=== PATIENT | female | born 1995 | race Caucasian/White ===

== ENCOUNTER 2018-12-05 13:05 | Emergency (ER) | payer OTHER ==
[2018-12-05] MEDS ORDERED: Ondansetron 8 MG Tab.DIS PO ONE (13:26)
[2018-12-05] MEDS ORDERED: SUMAtriptan 6 MG/0.5 ML SDV SUBCUT ONE (13:26)
--- NOTE | 2018-12-05 13:30 | EDM.PDOC ---
ED HPI GENERAL MEDICAL PROBLEM - General Stated Complaint: SOB, SHAKEY,DIZZY Time Seen by Provider: 12/05/18 13:05 Source of Information: Reports: Patient, Family History Limitations: Reports: No Limitations - History of Present Illness INITIAL COMMENTS - FREE TEXT/NARRATIVE: 23 y.o.w.f came to the ed due to painful urinations. Pt was seen yesterday by her PMD, when she was diagnosed with a UTI. Pt was given Bactrim DS> So far she took one dose of it. She c/o bitemporal Headache with nausea as well. Pt took Imitrex po at home after which felt jittery and her headache did not improve. He eye exam was in September 2018, no N/V/D, no other acute medical issues. 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: Other (see below) (bactrim) Frontal Headache Pain Score (Numeric/FACES): 9 - Related Data Allergies Allergy/AdvReac Type Severity Reaction Status Date / Time No Known Allergies Allergy Verified 12/05/18 13:37 Home Meds: Home Meds Ciprofloxacin HCl [Cipro] 250 mg PO BID 12/05/18 [History] Ondansetron [Zofran ODT] 4 mg PO Q6H PRN #10 tab.dis 12/05/18 [Rx] Phenazopyridine [Pyridium] 100 mg PO TID #9 tablet 12/05/18 [Rx] SUMAtriptan [Imitrex] 25 mg PO Q2H PRN 12/05/18 [History] ED ROS GENERAL - Review of Systems Review Of Systems: See Below Constitutional: Reports: No Symptoms HEENT: Reports: No Symptoms Respiratory: Reports: No Symptoms Cardiovascular: Reports: No Symptoms Endocrine: Reports: No Symptoms GI/Abdominal: Reports: No Symptoms : Reports: No Symptoms Musculoskeletal: Reports: No Symptoms Skin: Reports: No Symptoms Neurological: Reports: Headache Psychiatric: Reports: No Symptoms Hematologic/Lymphatic: Reports: No Symptoms Immunologic: Reports: No Symptoms - Physical Exam Exam: See Below Exam Limited By: No Limitations General Appearance: Alert, WD/WN, No Apparent Distress Eye Exam: Bilateral Eye: Normal Inspection Ears: Normal External Exam, Normal TMs Throat/Mouth: Normal Inspection Head Exam: Atraumatic, Normocephalic Neck: Normal Inspection, Supple, Non-Tender Respiratory/Chest: No Respiratory Distress, Lungs Clear, Normal Breath Sounds, Chest Non-Tender Cardiovascular: Normal Peripheral Pulses, Regular Rate, Rhythm, No Edema, No Gallop, No Murmur, No Rub GI/Abdominal: Normal Bowel Sounds, Soft, Non-Tender, No Organomegaly, No Abnormal Bruit, No Mass, Pelvis Stable (Female) Exam: Deferred Rectal (Female) Exam: Deferred Neuro Exam (Abbreviated): Alert, Oriented, CN II-XII Intact, Normal Cognition, Normal Gait Back Exam: Normal Inspection, Full Range of Motion Extremities: Normal Inspection, Normal Range of Motion, Non-Tender, No Pedal Edema Psychiatric: Normal Affect, Normal Mood Skin Exam: Warm, Dry, Intact Course - Vital Signs Text/Narrative:: 23 y.o.w.f came to the ed due to painful urinations. Pt was seen yesterday by her PMD, when she was diagnosed with a UTI. Pt was given Bactrim DS> So far she took one dose of it. She c/o bitemporal Headache with nausea as well. Pt took Imitrex po at home after which felt jittery and her headache did not improve. He eye exam was in September 2018, no N/V/D, no other acute medical issues. BP 135 /74 RR 18 Pulse ox 100% on RA Temp 36.4 pulse 82 PE: WNWD W F with dysuria, photophobia and H/A Impression: Headache, Dysuria Tx: Toradol, Zofran, Pyridium Rexam: H/A and Dysuria subsided. Plan: D/C with instructions Last Recorded V/S: Last Vital Signs Temp 36.9 C 12/05/18 13:25 Pulse 79 12/05/18 15:05 Resp 18 12/05/18 15:05 BP 120/66 12/05/18 15:05 Pulse Ox 100 12/05/18 15:05 - Orders/Labs/Meds Labs: Laboratory Tests 12/05/18 Range/Units 14:40 Urine Color Yellow (YELLOW) Urine Appearance Clear (CLEAR) Urine pH 7.0 H (5.0-6.5) Ur Specific [place] 1.005 L (1.010-1.025) Urine Protein Negative (NEGATIVE) mg/dL Urine Glucose (UA) Normal (NORMAL) mg/dL Urine Ketones Negative (NEGATIVE) mg/dL Urine Occult Blood Negative (NEGATIVE) Urine Nitrite Negative (NEGATIVE) Urine Bilirubin Negative (NEGATIVE) Urine Urobilinogen Normal (NEGATIVE) mg/dL Ur Leukocyte Esterase Negative (NEGATIVE) Urine RBC 0-5 (0-5) Urine WBC 0-5 (0-5) Ur Squamous Epith Cells Few H (NS,R,O) Urine Bacteria Few H (NS) Meds: Medications Discontinued Medications Generic Name Dose Route Start Last Admin Trade Name Freq PRN Reason Stop Dose Admin Ketorolac Tromethamine 60 mg 12/05/18 13:59 12/05/18 14:07 Toradol IM 12/05/18 14:00 60 mg ONETIME ONE Administration Ondansetron HCl 8 mg 12/05/18 13:26 12/05/18 14:07 Zofran Odt PO 12/05/18 13:27 8 mg ONETIME ONE Administration Phenazopyridine HCl 95 mg 12/05/18 14:41 12/05/18 15:20 Urinary Pain Relief PO 12/05/18 14:42 Not Given TIDPC STA Sumatriptan Succinate 6 mg 12/05/18 13:26 12/05/18 14:08 Imitrex SUBCUT 12/05/18 13:27 Not Given ONETIME ONE Departure - Departure Time of Disposition: 14:40 Disposition: Home, Self-Care 01 Condition: Good Clinical Impression: Tension headache - Discharge Information Prescriptions: Ondansetron [Zofran ODT] 4 mg PO Q6H PRN #10 tab.dis PRN Reason: Nausea Phenazopyridine [Pyridium] 100 mg PO TID #9 tablet Instructions: Migraine Headache, [id number], Ondansetron oral dissolving tablet, Ketorolac injection Referrals: Navneet Joseph MD [Primary Care Provider] - Forms: ED Department Discharge Additional Instructions: Please increase water intake, please take Zofran for nausea. Motrin 600mg with food for headache, Pyridium for pain when urinating, Please continue your Abx. Please come back to the ED if your symptoms get worse acutely
[2018-12-05] MEDS ORDERED: Ketorolac 60 MG/2 ML SDV IM ONE (13:59)
[2018-12-05] MEDS ORDERED: Phenazopyridine 95 MG Tab PO STA (14:41)
== END 2018-12-05 15:06 | disposition home or self-care (01) ==
LOC: FB.ED 13:05
DX: G44.209 Tension-type headache, unspecified, not intractable (principal); R30.0 Dysuria
CPT/HCPCS: 81001; 96372; 99285; A9270; J1885